=== PATIENT | female | born 1965 | race Caucasian/White ===

== ENCOUNTER 2018-06-23 10:25 | Emergency (ER) | payer BC ==
[2018-06-23] MEDS ORDERED: Ketorolac Tromethamine 60 MG/2 ML VIAL ONE (11:30)
[2018-06-23] MEDS ORDERED: Cyclobenzaprine 10 MG TAB ONE (11:30)
== END 2018-06-23 11:44 | disposition home or self-care (01) ==
LOC: ERS 10:25
DX: M54.5 Low back pain (principal); F41.9 Anxiety disorder, unspecified; Z79.899 Other long term (current) drug therapy
CPT/HCPCS: 96372; J1885

== ENCOUNTER 2018-06-30 09:43 | Outpatient (CLI) | payer BC ==
--- NOTE | 2018-06-30 11:47 | MRI ---
MRI LUMBAR SPINE WITHOUT CONTRAST: HISTORY: Severe intractable low back pain with radiation down both lower extremities. COMPARISON: None. FINDINGS: Appropriate T1 marrow signal intensity of the lumbar vertebrae. Lumbar spine vertebral body height i s maintained. There is no fracture. No significant STIR hyperintensity to suggest vertebral body ed darron or ligamentous injury. Overall appropriate marrow signal intensity of the lumbar vertebrae. Lumbar spine vertebral body hei ght is maintained. No fracture. T12-L1: Adequate disk hydration. No significant central canal stenosis. Foramen are patent. L1-L2: Adequate disk hydration. No significant central canal stenosis. Foramen are patent. L2-3: Adequate disk hydration. No significant central canal stenosis. Foramen are patent. L3-L4: Mild loss of disk space height. Generalized disk bulge, minimal ligamentum flavum thickening , and facet hypertrophy result in mild central canal stenosis. Minimal encroachment upon the right s ubarticular zone. Disk material abuts but does not obscure the traversing right L4 nerve root. Mild bilateral neural foraminal narrowing. L4-L5: Adequate disk hydration. No significant loss of disk space height. No significant posterior disk abnormality. No significant central canal stenosis. Neural foramen are patent. L5-S1: Adequate disk hydration. No significant central canal stenosis. Neural foramen are patent. IMPRESSION: Degenerative disk disease at L3-L4 and L4-L5. Mild central canal stenosis. No significant foraminal narrowing. POS: EAN
== END 2018-06-30 09:44 | disposition home or self-care (01) ==
LOC: MRI 09:43
PROVIDERS: ATTEND Family Medicine
DX: M54.5 Low back pain (principal); M51.36 Other intervertebral disc degeneration, lumbar region; M48.061 Spinal stenosis, lumbar region without neurogenic claudication
CPT/HCPCS: 72148

== ENCOUNTER 2020-03-02 06:33 | Outpatient (CLI) | payer BC, OTHER ==
[2020-03-02 16:46] LABS: Hemoglobin 13.5 g/dL (12.0-16.0); Mean Corpuscular HGB CONC 32.3 G/DL (32.0-36.0); Mean Corpuscular Hemoglobin 30.5 PG (27.0-33.0); Mean Corpuscular Volume 94.6 fl (80.0-100.0); Mean Platelet Volume 8.2 fl (7.4-10.4); Platelet Count 404 10x3/uL (130-400); Red Blood Cell (RBC) Count 4.42 10x6/uL (3.90-5.20); White Blood Cell (WBC) Count 12.1 10x3/uL (4.5-11.0)
[2020-03-05 00:12] LABS: SARS-CoV-2 MS2 Positive; SARS-CoV-2 N Gene Negative; SARS-CoV-2 S Gene Negative; SARS-CoV-2 by NAA Not Detected (Not Detected); SARS-CoV-2 orf1ab Negative
[2020-03-07 17:16] VITALS: BMI 33.7
== END 2020-03-02 06:34 | disposition home or self-care (01) ==
LOC: LABBT 06:33
PROVIDERS: ATTEND Obstetrics & Gynecology
DX: Z01.812 Encounter for preprocedural laboratory examination (principal); Z20.828 Contact with and (suspected) exposure to other viral communicable diseases
CPT/HCPCS: 85027; 87635; U0003

== ENCOUNTER 2020-03-08 10:03 | Day surgery (SDC) | payer BC ==
--- NOTE | 2020-03-06 07:52 | HP ---
HISTORY OF PRESENT ILLNESS: Ms. Polanco is a 55-year-old white female, G2, P1, A1 with prior section, who noted a recent abnormal lesion in her left labial area. It felt like a dry spot. It was not painful, itchy, or bleeding. She was seen by my physician special education assistant in the office on 01/05/2020. Approximately, a 1 x 1 cm leukoplakia area was noted in the left labia minora. 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 No other lesions were seen. PAST MEDICAL HISTORY: Significant for anxiety and depression. PAST SURGICAL HISTORY: 1. Laparoscopic sleeve gastrectomy. 2. Colonoscopy. 3. delivery. CURRENT MEDICATIONS: 1. Adderall. 2. Bupropion 150 mg XR twice a day. 3. Combipatch 0.05 mg/0.14 mg transdermal patch twice weekly. ALLERGIES: SHE HAS NO KNOWN DRUG ALLERGIES. PHYSICAL EXAMINATION: VITAL SIGNS: Her height is 5 feet 1 inch, weight 168, and BMI 31.7. Blood pressure 130/86, pulse 90, respiratory rate 18, and O2 saturation on room air 98%. HEENT: Within normal limits. CHEST: Clear to auscultation. HEART: Regular rate and rhythm. S1 and S2 heart sounds. No murmurs, rubs, or gallops. ABDOMEN: Soft, nontender, and nondistended with no palpable masses. PELVIC: She has a noted 1 x 1 cm leukoplakia region in the left labia minora just superior to the introitus. No other lesions were noted. Punch biopsy confirmed BETO 2-3. 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 She is scheduled for wide local excision of the abnormal finding on 03/07/2020. Risks and benefits of the procedure have been discussed in detail. Job ID: [id number]
[2020-03-07 12:45] VITALS: BMI 32.8
[2020-03-08] MEDS ORDERED: CeleCOXIB 100 MG CAP ONE (10:43)
[2020-03-08] MEDS ORDERED: Famotidine/PF 20 mg/2ml Vial ONE ×2 (10:43→10:56)
[2020-03-08] MEDS ORDERED: Gabapentin 300 MG CAP ONE (10:43)
[2020-03-08] MEDS ORDERED: Fentanyl 100 MCG/2 ML VIAL ONE (10:56)
[2020-03-08] MEDS ORDERED: Lidocaine 1% PF 5 ML VIAL ONE (11:16)
[2020-03-08] MEDS ORDERED: Metoclopramide HCl 10 MG/2 ML VIAL ONE (11:16)
[2020-03-08] MEDS ORDERED: PROPOFOL 200 MG/20 ML VIAL ONE (11:16)
[2020-03-08] MEDS ORDERED: Ketorolac Tromethamine 30 MG/ML VIAL ONE (11:16)
[2020-03-08] MEDS ORDERED: PHENYLEPHRINE-NS 100 MCG/ML 10 ML SYRINGE ONE (11:16)
[2020-03-08] MEDS ORDERED: Dexamethasone 20 MG/5 ML VIAL ONE (11:16)
[2020-03-08] MEDS ORDERED: Bupivacaine 0.25% HCL 30 ML VIAL ONE ×2 (11:38)
[2020-03-08] MEDS ORDERED: Lidocaine 1% w/Epinephrine 1:100K 20 ML VIAL ONE (11:38)
--- NOTE | 2020-03-08 14:45 | OP ---
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 PROCEDURE PERFORMED: Wide local excision of vulvar lesion. ANESTHESIA: LMA and local. PATHOLOGY: Left labial lesion tagged at 12 o'clock. FINDINGS: Approximately 7 x 7 mm leukoplakia lesion of the left labia in the midportion just superior to the introitus and below the urethral meatus. No other lesions noted on exam. DESCRIPTION OF PROCEDURE: The patient previously received informed consent in regard to surgery. She was taken back to the operating room, where she received an LMA general anesthetic agent. She was placed in dorsal lithotomy position and prepped and draped in usual sterile fashion. The lesion was noted in the left labia and margin approximately 5 mm from the leukoplakia margin, borders were marked with a marking pen. The lesion was infiltrated with a mixture of 1% lidocaine with epinephrine and 0.5% Marcaine. Approximately 10 mL was injected. The edges of the demarcated area were then marked with Bovie cautery and then vulvectomy skinning of the area was carried down in elliptical fashion, removing the lesion in its entirety with margins noted. The subcuticular area was then cauterized for any bleeding areas and then the deep stitches of 2-0 Vicryl in mattress suture fashion were placed to rid the space and then interrupted subcuticular mattress sutures on the edges of the incision were carried out with 2-0 Vicryl, securing closure and hemostasis. Some Dermabond was also placed over the wound. The patient was then awakened from anesthesia, transferred to recovery room in stable condition. Job ID: [id number]
--- NOTE | 2020-03-11 20:53 | EKG ---
Test Reason : PREOP Blood Pressure : / mmHG Vent. Rate : 094 BPM Atrial Rate : 094 BPM P-R Int : 134 ms QRS Dur : 088 ms QT Int : 332 ms P-R-T Axes : 074 061 048 degrees QTc Int : 415 ms Normal sinus rhythm Normal ECG Confirmed by Johanna LANGSTON ([id number]) on 03/11/2020 8:52:59 PM Referred By: CHUCHO Confirmed By:Johanna LANGSTON
== END 2020-03-08 14:10 | disposition home or self-care (01) ==
LOC: SDC 10:03
PROVIDERS: ATTEND Obstetrics & Gynecology
PROC: 0UBMXZZ Excision of Vulva, External Approach (ICD-10-PCS; principal; 2020-03-08)
DX: N90.1 Moderate vulvar dysplasia (principal); F41.9 Anxiety disorder, unspecified; F32.9 Major depressive disorder, single episode, unspecified; Z79.899 Other long term (current) drug therapy; Z91.038 Other insect allergy status
CPT/HCPCS: 88307; 93005; 93010; J0690; J1100; J1885; J2704; J2765; J3010; S0020; S0028

== ENCOUNTER 2020-09-06 08:31 | Outpatient (CLI) | payer BC | END 2020-09-06 08:32 | disposition home or self-care (01) | LOC: BICMRI 08:31 | PROVIDERS: ATTEND Nurse Practitioner Family | DX: M51.16 Intervertebral disc disorders with radiculopathy, lumbar region (principal); M48.061 Spinal stenosis, lumbar region without neurogenic claudication; M43.16 Spondylolisthesis, lumbar region; M47.817 Spondylosis without myelopathy or radiculopathy, lumbosacral region | CPT/HCPCS: 72148 ==

== ENCOUNTER 2020-10-09 08:17 | Outpatient (CLI) | payer BC | END 2020-10-09 08:18 | disposition home or self-care (01) | LOC: BICRAD 08:17 | PROVIDERS: ATTEND Specialist | DX: M47.816 Spondylosis without myelopathy or radiculopathy, lumbar region (principal); M43.16 Spondylolisthesis, lumbar region | CPT/HCPCS: 72110 ==